=== PATIENT | male | born 1990 | race African-American/Black ===

== ENCOUNTER 2020-06-05 20:46 | Emergency (ER) | payer OTHER, SELFPAY ==
[2020-06-05 20:49] VITALS: BP 147/84; PULSE 78; RESP 20; TEMP 36.3; O2SAT 100
--- NOTE | 2020-06-05 20:54 | ED.DENTAL ---
HPI - Dental/Oral General Chief complaint: Dental/Oral Stated complaint: Left sided dental pain Time Seen by Provider: 06/05/20 20:54 Source: patient Mode of arrival: ambulatory Limitations: no limitations History of Present Illness HPI Narrative: Patient is a 30-year-old male who presents for evaluation of left-sided tooth ache. Patient reports a 2-day history of worsening tooth ache pain in the posterior aspect of his upper mouth. Left side of his face feels somewhat sore. He denies ear pain. No difficulty opening his mouth or difficulty with swallowing. No shortness of breath. Patient has history of dental infection several months ago from an infected wisdom tooth, states this feels similar. No recent dental trauma. Related Data Allergies Allergy/AdvReac Type Severity Reaction Status Date / Time No Known Allergies Allergy Verified 06/05/20 20:52 Review of Systems Review of Systems: Narrative: CONSTITUTIONAL: Denies fever CARDIOVASCULAR: Denies chest pain RESPIRATORY: Denies cough or dyspnea. GASTROINTESTINAL: Denies abdominal pain SKIN: Denies rash MUSCULOSKELETAL: Denies back pain NEUROLOGIC: Denies headache [facility] Past Medical History Medical History (Updated 06/05/20 @ 21:08 by Karen Gunn MD) Hypertension Surgical History Surgical History (Updated 06/05/20 @ 21:08 by Karen Gunn MD) No pertinent past surgical history Exam Narrative: Exam Narrative: GENERAL: Awake, alert, conversant HEAD: Normocephalic, atraumatic. No facial edema or erythema. EYES: PERRLA and EOMI. ENT: Nares clear, no rhinorrhea or epistaxis. Mucous membranes moist. No trismus. Mild erythema of the gingiva, third molar, tooth 16. No abscess. Uvula is midline. NECK: Supple. No lymphadenopathy. CHEST: No respiratory distress, breathing even and non labored HEART: Regular rate, sinus rhythm ABDOMEN:Non distended, non tender EXTREMITIES: Normal range of motion. No edema. SKIN: Warm, dry, no rash. NEURO:No focal deficits. Alert and oriented x3 Course Vital Signs Vital signs: Vital Signs Temperature 36.3 C L 06/05/20 20:49 Pulse Rate 78 06/05/20 20:49 Respiratory Rate 20 06/05/20 20:49 Blood Pressure 147/84 H 06/05/20 20:49 Pulse Oximetry 100 06/05/20 20:49 Temperature 36.3 C L 06/05/20 20:49 Pulse Rate 78 06/05/20 20:49 Respiratory Rate 20 06/05/20 20:49 Blood Pressure 147/84 H 06/05/20 20:49 Pulse Oximetry 100 06/05/20 20:49 MDM - Dental/Oral MDM Narrative Medical decision making narrative: Patient's pain is consistent with dental caries. At the time of assessment there are no signs of systemic illness, no focal signs of space-occupying abscess or lesions, no signs of Nelson angina or other concerning retropharyngeal infection. The patient is controlling hizs secretions well without signs of airway compromise. Patient is thought reasonable for outpatient follow-up with dental evaluation. Patient given oral antibiotics and medication for analgesia. Differential Diagnosis Differential diagnosis: Likely dental caries, toothache, dental abscess, fracture of tooth and aphthous ulcer Discharge Plan Discharge Clinical Impression: Toothache Patient Disposition: Home, Self-Care Condition: Stable Instructions: Toothache (ED) Additional Instructions: Please contact your dentist for follow up from this visit. If you experience worsening pain, vomiting that does not stop, bleeding complications, chest pain, shortness of breath, inability to tolerate your medications please return for reassessment. Take any prescribed medications as directed and do not miss or skip any doses of antibiotics if you have been prescribed them to take. Stay well-hydrated For fever and pain, you may take Tylenol 500 mg - 1000 mg every 8 hours, and Ibuprofen 400 mg every 6-8 hours as needed for pain. These medications can safely be taken together as long as you do not have a known allergy to them
== END 2020-06-05 21:17 | disposition home or self-care (01) ==
LOC: ANHED 21:10
PROVIDERS: Emergency Provider Emergency Medicine; PCP Internal Medicine
DX: K08.89 Other specified disorders of teeth and supporting structures (principal); I10 Essential (primary) hypertension
CPT/HCPCS: 99283

== ENCOUNTER 2021-05-18 23:31 | Emergency (ER) | payer OTHER, SELFPAY ==
[2021-05-18 23:44] VITALS: BP 152/103; PULSE 72; RESP 17; TEMP 36.3; O2SAT 99
[2021-05-19 01:45] VITALS: BP 159/103; PULSE 77; TEMP 36.6; O2SAT 98
--- NOTE | 2021-05-19 03:56 | PC.NURSE ---
Pt. states I will call my doctor tomorrow. Pt, amb out of ed w/ steady gait. NAD
== END 2021-05-19 03:57 | disposition left against medical advice (07) ==
PROVIDERS: Emergency Provider Emergency Medicine; PCP Internal Medicine
DX: J02.9 Acute pharyngitis, unspecified (principal)
CPT/HCPCS: 87081; 87880; 99199

== ENCOUNTER 2021-09-28 22:03 | Observation (INO) | payer OTHER, SELFPAY ==
[2021-09-28] VITALS (9 sets, daily range): BP systolic 126–137; BP diastolic 75–92; PULSE 68; RESP 19; TEMP 36.9; O2SAT 96–100
--- NOTE | 2021-09-28 22:18 | ECG_ITS ---
Measurements Intervals [place] Rate: 72 P: 17 [place]: 211 QRS: 69 QRSD: 84 T: 35 QT: 355 QTc: 391 Interpretive Statements SINUS RHYTHM WITH FIRST DEGREE AV BLOCK ABNORMAL ECG Electronically Signed On 09-29-2021 6:18:31 [employer] by Felix Cabello D.O.
--- NOTE | 2021-09-28 23:13 | ED.NAVMDI ---
HPI - Nausea/Vomiting/Diarrhea General Chief complaint: Nausea/Vomiting/Diarrhea Stated complaint: N/V, chest pain Time Seen by Provider: 09/28/21 23:12 Source: patient Mode of arrival: ambulatory Limitations: no limitations History of Present Illness HPI Narrative: Patient is a 31-year-old male complaining of nausea, vomiting, diarrhea accompanied by burning sensation in his epigastric substernal area after eating tonight. Patient describes his vomitus is nonbilious nonbloody. Patient describes diarrhea as loose watery. Patient denies any shortness of breath, diaphoresis, fever or chills. Related Data Home Medications Medication Instructions Recorded Confirmed lisinopril 2.5 mg PO DAILY 09/28/21 09/28/21 metoprolol succinate 25 mg PO DAILY 09/28/21 09/28/21 Allergies Allergy/AdvReac Type Severity Reaction Status Date / Time No Known Allergies Allergy Verified 06/05/20 20:52 Review of Systems Review of Systems: All systems reviewed & are unremarkable except as noted in HPI and below Constitutional: Constitutional: Denies body ache(s), Denies chills, Denies excessive sweating, Denies fatigue, Denies fever(s), Denies headache(s), Denies lethargy, Denies malaise, Denies weakness and Denies weight loss Eyes: Eyes: Denies blurry vision, Denies change in vision and Denies loss of vision ENT: Denies dizziness, Denies ear discharge, Denies headache(s), Denies lip swelling, Denies epistaxis, Denies nasal congestion, Denies neck pain, Denies throat swelling and Denies tongue swelling Cardiovascular: Cardiovascular: Denies chest pain, Denies chest pain at rest, Denies chest pain with activity, Denies diaphoresis, Denies rapid heart rate, Denies edema, Denies irregular heart rhythm, Denies lightheadedness, Denies palpitations, Denies dyspnea and Denies dyspnea on exertion Respiratory: Respiratory: Denies chest congestion, Denies cough, Denies hemoptysis, Denies dyspnea and Denies dyspnea on exertion Gastrointestinal: Gastrointestinal: Denies melena, Denies hematochezia and Denies hematemesis Musculoskeletal: Musculoskeletal: Denies abnormal gait, Denies deformity, Denies joint swelling, Denies limited range of motion, Denies neck pain and Denies numbness Neurologic: Denies Abnormal speech present, Denies abnormal gait, Denies confusion, Denies dizziness, Denies headache(s), Denies focal weakness, Denies loss of vision, Denies numbness, Denies Other visual disturbances, Denies Sensory deficit (Neuro) and Denies weakness Psychiatric: Psychiatric: Denies confusion, Denies depression, Denies auditory hallucinations, Denies homicidal ideation and Denies suicidal ideation Endocrine: Endocrine: Denies cold intolerance, Denies excessive sweating, Denies fatigue, Denies heat intolerance and Denies palpitations Hematologic/Lymphatic: Hematologic/Lymphatic: Denies easy bleeding and Denies easy bruising Allergic/Immunologic: Allergic/Immunologic: Denies lip swelling, Denies throat swelling and Denies tongue swelling PMFSH Past Medical History Medical History (Updated 09/29/21 @ 03:12 by Martin Santos MD) Hypertension Surgical History Surgical History (Updated 06/05/20 @ 21:08 by Karen Gunn MD) No pertinent past surgical history Comments Past medical history: Hypertension Family history: Hypertension Social history: Non-smoker no EtOH or drug use Exam Const: General: cooperative, healthy appearing, comfortable, no acute distress, well developed, alert and awake; No confusion Orientation/consciousness: oriented to person, oriented to place, oriented to time, patient oriented x3 and No confusion Limitations: no limitations HENMT: Head: normal to inspection, normocephalic and atraumatic Ears: hearing grossly normal bilaterally, TM normal on the right and TM normal on the left General nose exam: Normal external nose present, Normal nares present and No nasal discharge present Face and sinus: normal facial exam Abbie
[2021-09-29] VITALS (20 sets, daily range): BP systolic 123–145; BP diastolic 75–107; PULSE 66–79; RESP 13–25; TEMP 36.3–36.4; O2SAT 97–100
[2021-09-29] MEDS: SODIUM CHLORIDE 0.9% IV 1,000 ML 999 ML IV CONT (00:45)
[2021-09-29] MEDS: ONDANSETRON INJ 4 MG/2 ML VIAL IV PUSH ×3 (00:46→10:46)
[2021-09-29 02:31] LABS: Basophils Percent Auto 0.3 % (0.2-1.2); Eosinophils Percent Auto 0.5 % (0-4.4); Hematocrit 42.3 % (42.0-52.0); Hemoglobin 14.6 g/dL (14.0-18.0); Immature Granulocyte Absolute 0.01 K/mm3 (0.00-0.031); Immature Granulocyte Percent A 0.3 % (0-0.5); Lymphocytes Percent Auto 23.6 % (18.3-44.2); Mean Corpuscular HGB Conc 34.5 g/dl (32-36); Mean Corpuscular Hemoglobin 30.2 pg (26-34); Mean Corpuscular Volume 87.4 fl (80-100); Mean Platelet Volume 9.4 fl (7.4-10.4); Monocytes Absolute Auto 0.3 K/mm3 (0.1-0.6); Monocytes Percent Auto 8.9 % (2.6-8.5); Neutrophils Absolute Auto 2.5 K/mm3 (1.3-6.7); Neutrophils Percent Auto 66.4 % (45.5-73.1); Platelet Count Result 204 k/mm3 (150-375); Red Blood Count 4.84 M/mm3 (4.6-6.20); Red Cell Distribution Width 12.9 % (11.5-14.5); White Blood Count 3.8 K/mm3 (4.5-10.0)
[2021-09-29 02:40] LABS: Add Urine Microscopic? YES; Appearance Urine Clear (Clear); Bilirubin Urine Negative (Negative); Blood Urine Negative (Negative); Color Urine Yellow (Yellow); Glucose Urine UA Negative (Negative); Ketones Urine Negative (Negative); Leukocyte Esterase Ur Negative LEU/UL (Negative); Mucus Urine Heavy /lpf; Nitrate Urine Negative (Negative); Protein Urine Negative (Negative); RBC Urine 0-2 /hpf (0-2); Squamous Epithelial Cell Urine Rare /hpf (Few); WBC Urine 0-3 /hpf
[2021-09-29 02:41] LABS: Specific Grav Ur 1.033 (1.001-1.035)
[2021-09-29 02:51] LABS: Alanine Aminotransferase 18 U/L (4-50); Albumin Level 2.1 g/dL (3.5-5.1); Alkaline Phosphatase 39 U/L (38-126); Anion Gap 5 mmol/L (8-16); Aspartate Amino Transferase 16 U/L (17-59); Bilirubin,Total 0.6 mg/dL (0.2-1.3); Blood Urea Nitrogen 6 mg/dL (9-20); Calcium 4.7 mg/dL (8.4-10.2); Carbon Dioxide 16 mmol/L (22-30); Chloride 119 mmol/L (98-107); Estimated Glomerular Filt Rate > 60; Glucose 55 mg/dL (65-110); Lipase 56 U/L (23-300); Potassium 2.1 mmol/L (3.4-5.0); Sodium 140 mmol/L (137-145)
[2021-09-29] MEDS: LACTATED RINGERS 1,000 ML 125 ML IV CONT (04:53)
[2021-09-29] MEDS: LOPERAMIDE HCL 2 MG CAPSULE 4 MG PO (04:57)
[2021-09-29 05:10] LABS: Alanine Aminotransferase 30 U/L (4-50); Albumin Level 3.9 g/dL (3.5-5.1); Alkaline Phosphatase 72 U/L (38-126); Anion Gap 9 mmol/L (8-16); Aspartate Amino Transferase 27 U/L (17-59); Bilirubin,Total 1.2 mg/dL (0.2-1.3); Blood Urea Nitrogen 9 mg/dL (9-20); Calcium 8.3 mg/dL (8.4-10.2); Carbon Dioxide 24 mmol/L (22-30); Chloride 106 mmol/L (98-107); Estimated CRCL calculation 126 ml/min; Estimated Glomerular Filt Rate > 60; Glucose 100 mg/dL (65-110); Potassium 3.3 mmol/L (3.4-5.0); Sodium 139 mmol/L (137-145)
--- NOTE | 2021-09-29 06:59 | ADMGEN ---
This patient, Ant Hamilton, was admitted to 3 [facility] Surg Room 316-01. Patient/family oriented to hospital policies and general routines including ID bracelet, bed and alarms, visiting hours, pain management, procedures, bathroom and other care routines, personal items, smoking policy, room service/diet, and visiting hours. Information on how to activate the Rapid Response Team has been discussed. Patient/Family are encouraged to report perceived risks to care and to ask questions if they do not understand what they are told or what they should do.
[2021-09-29] MEDS: PANTOPRAZOLE SODIUM IV 40 MG VIAL IV PUSH (10:42)
[2021-09-29] MEDS: ENOXAPARIN 40 MG/0.4 ML SYRINGE SUB-Q (10:43)
[2021-09-29] MEDS: METOPROLOL SUCCINATE EXT REL 25 MG TABCR PO (11:56)
[2021-09-29] MEDS: lisinopriL 2.5 MG TABLET PO (11:57)
--- NOTE | 2021-09-29 14:13 | PM.IMHP ---
H&P: HPI History of Present Illness Date/Time: 09/29/21 14:13 Pt is a 31 yo male w/ hx of HTN, [place] w/ cardiac cath (negative), pericarditis, and morbid obesity, presented to the ED for evaluation of N/V/D and was subsequently admitted for hypokalemia and hypoglycemia. Pt states yesterday morning around 0300 he woke up from sleep with nausea, vomiting, and diarrhea. He has had greater than 10 episodes of emesis since that time. He also reports greater than 30 episodes of watery diarrhea. He has been unable to keep anything down. He admits to epigastric pain that started after the vomiting but states he only has pain when wretching. No abd pain currently. No hematochezia or hematemesis. No recent travel, abx use, ill contacts, or abnormal foods. He was evaluated in the ED and found to have a potassium of 2.1 and glucose of 55. He was treated w/ K rider and Amp of D50 and admitted for further observation and management. Chief Complaint: nausea/vomiting Review of Systems Review of Systems: General: Denies fevers, +chills, +fatigue Eyes: Denies vision changes or eye pain ENT: Denies nasal congestion or sore throat Respiratory: Denies cough or shortness of breath Cardiovascular: Denies chest pain, palpitations, or lower extremity edema Gastrointestinal: + abdominal pain, + vomiting, + diarrhea Genitourinary: Denies dysuria or urinary frequency Musculoskeletal: Denies back pain or muscle aches Neurological: Denies headache, paraesthesias, or motor weakness Integumentary: Denies rash or other skin lesions Psychiatric: Denies SI/HI [facility] Past Medical History Medical History (Updated 09/29/21 @ 14:28 by Akua Arriaga PA-C) Hypertension Pericarditis Surgical History Surgical History (Updated 09/29/21 @ 14:24 by Akua Arriaga PA-C) History of cardiac catheterization at age 23 No pertinent past surgical history Family History Family History (Updated 09/29/21 @ 14:25 by Akua Arriaga PA-C) Grandparent Heart disease Mother Cerebrovascular accident Social History Social History (Updated 09/29/21 @ 14:25 by Akua Arriaga PA-C) Smoking packs per day: 1 Smoking cigarettes per day: 20.0 Smoking status: Former smoker Tobacco type: cigarettes Alcohol intake: never Substance use: current Substance use type: marijuana Living arrangements: with family Sexual Orientation (if Verbalized by the Patient): Straight or Heterosexual Spiritual care concerns: No Meds Home Medications and Allergies Home Medications Medication Instructions Recorded Confirmed Type lisinopril 2.5 mg PO DAILY 09/28/21 09/28/21 History metoprolol succinate 25 mg PO DAILY 09/28/21 09/28/21 History Allergies Allergy/AdvReac Type Severity Reaction Status Date / Time No Known Allergies Allergy Verified 06/05/20 20:52 Vital Signs Vital Signs - 24 hr 09/28/21 22:15 09/28/21 22:32 09/28/21 22:45 Temperature Pulse Rate Respiratory Rate Blood Pressure Pulse Oximetry 99 100 96 09/28/21 23:00 09/28/21 23:15 09/28/21 23:16 Temperature 98.4 F Pulse Rate 68 Respiratory Rate 19 Blood Pressure 130/75 126/92 H Pulse Oximetry 97 97 96 09/28/21 23:30 09/28/21 23:31 09/28/21 23:45 Temperature Pulse Rate Respiratory Rate Blood Pressure 137/79 Pulse Oximetry 100 98 97 09/29/21 02:52 09/29/21 02:55 09/29/21 03:00 Temperature Pulse Rate 75 70 Respiratory Rate 23 H 25 H Blood Pressure 133/107 H Pulse Oximetry 97 97 98 09/29/21 03:01 09/29/21 03:15 09/29/21 03:30 Temperature Pulse Rate 78 78 69 Respiratory Rate 24 H 22 H 20 Blood Pressure 145/90 H Pulse Oximetry 99 99 99 09/29/21 03:33 09/29/21 03:45 09/29/21 04:00 Temperature Pulse Rate 68 79 71 Respiratory Rate 21 H 13 19 Blood Pressure 140/91 H Pulse Oximetry 09/29/21 04:01 09/29/21 04:15 09/29/21 04:30 Temperature Pulse Rate 75 73 74 Respiratory Rate 22
[2021-09-29] MEDS: LACTATED RINGERS 1,000 ML 50 ML IV CONT (21:42)
[2021-09-29 22:29] LABS: Basophils Percent Auto 0.5 % (0.2-1.2); Eosinophils Absolute Auto 0.1 K/mm3 (0-0.3); Eosinophils Percent Auto 2.6 % (0-4.4); Hemoglobin 15.6 g/dL (14.0-18.0); Immature Granulocyte Absolute 0.08 K/mm3 (0.00-0.031); Immature Granulocyte Percent A 2.1 % (0-0.5); Lymphocytes Absolute Auto 1.64 K/mm3 (0.9-3.2); Lymphocytes Percent Auto 42.6 % (18.3-44.2); Mean Corpuscular HGB Conc 36.3 g/dl (32-36); Mean Corpuscular Volume 85.3 fl (80-100); Mean Platelet Volume 9.7 fl (7.4-10.4); Monocytes Absolute Auto 0.5 K/mm3 (0.1-0.6); Monocytes Percent Auto 13.2 % (2.6-8.5); Neutrophils Absolute Auto 1.5 K/mm3 (1.3-6.7); Platelet Count Result 195 k/mm3 (150-375); Red Blood Count 5.04 M/mm3 (4.6-6.20); Red Cell Distribution Width 12.7 % (11.5-14.5); White Blood Count 3.9 K/mm3 (4.5-10.0)
[2021-09-30 06:00] VITALS: BP 105/76; PULSE 65; RESP 18; TEMP 37.1; O2SAT 100
[2021-09-30 06:49] LABS: Anion Gap 9 mmol/L (8-16); Blood Urea Nitrogen 7 mg/dL (9-20); Calcium 8.5 mg/dL (8.4-10.2); Carbon Dioxide 24 mmol/L (22-30); Chloride 102 mmol/L (98-107); Estimated CRCL calculation 126 ml/min; Estimated Glomerular Filt Rate > 60; Glucose 84 mg/dL (65-110); Potassium 3.3 mmol/L (3.4-5.0); Sodium 135 mmol/L (137-145)
[2021-09-30] MEDS: POTASSIUM CHLORIDE 20 MEQ TABLET 40 MEQ PO (10:51)
[2021-09-30] MEDS: PANTOPRAZOLE SODIUM IV 40 MG VIAL IV PUSH (10:51)
[2021-09-30] MEDS: lisinopriL 2.5 MG TABLET PO (10:51)
[2021-09-30] MEDS: METOPROLOL SUCCINATE EXT REL 25 MG TABCR PO (10:53)
[2021-09-30] MEDS: ENOXAPARIN 40 MG/0.4 ML SYRINGE SUB-Q (10:57)
[2021-09-30 11:03] VITALS: O2SAT 99
[2021-09-30 12:35] LABS: Hematocrit 42.9 % (42.0-52.0); Hemoglobin 14.8 g/dL (14.0-18.0); Mean Corpuscular HGB Conc 34.5 g/dl (32-36); Mean Platelet Volume 9.9 fl (7.4-10.4); Platelet Count Result 204 k/mm3 (150-375); Red Blood Count 4.93 M/mm3 (4.6-6.20); Red Cell Distribution Width 12.7 % (11.5-14.5); White Blood Count 3.6 K/mm3 (4.5-10.0)
[2021-09-30 14:00] VITALS: BP 149/97; PULSE 70; RESP 16; TEMP 35.9; O2SAT 100
--- NOTE | 2021-09-30 14:03 | PM.DS ---
DS: Admitting Diagnosis Discharge Date 09/30/21 Admitting Diagnosis Hypokalemia, hypoglycemia DS: Discharge Diagnosis Discharge Diagnosis (1) Gastroenteritis: Code(s): K52.9 - Noninfective gastroenteritis and colitis, unspecified Status: Acute Assessment and Plan: -acute onset N/V/D consistent with viral gastroenteritis -no abdominal pain or hematochezia to suggest infectious colitis -given zofran in ED, no vomiting since arrival to hospital -continued IVF while still decreased PO intake -started with clear liquids and has advanced to bland diet, tolerating without difficulty -no complaints today, feels great, ready for discharge -no N/V/D, abd pain -stable for discharge, will provide zofran prescription -Return precautions provided (2) Acute hypokalemia: Code(s): E87.6 - Hypokalemia Status: Acute Assessment and Plan: -potassium 2.1 on arrival, likely due to volume loss secondary to above -replaced w/ IV and PO potassium and monitored -normal on discharge 3.6 (3) Hypoglycemia: Code(s): E16.2 - Hypoglycemia, unspecified Status: Acute Assessment and Plan: -glucose 55 on arrival, likely due to volume loss secondary to above -given amp of D50 and improved to 100 -no longer vomiting, tolerating PO with normal diet -normal on discharge 97 (4) Hypertension: Code(s): I10 - Essential (primary) hypertension Status: Acute Assessment and Plan: -continued home meds DS: Summary Hospital Course Reason for hospitalization: 31 yo male w/ hx of HTN, [place] w/ cardiac cath (negative), pericarditis, and morbid obesity, presented to the ED for evaluation of N/V/D and was subsequently admitted for hypokalemia and hypoglycemia. Please see HPI for further details. Hospital Course: Please see above for details of hospital course. Status at Discharge Cognitive/behavioral status at discharge: stable Functional status at discharge: independent ambulation Overall status at discharge: patient is progressing back to baseline Time Spent with Patient Time attestation: Total time spent providing and/or coordinating discharge services: 32 Time spent: Greater than 30 minutes Exam Narrative: General: No acute distress, non toxic appearing, obese Eyes: PERRL, no scleral icterus HEENT: NCAT, external ears normal, MMM Respiratory: No respiratory distress, Lungs CTA bilaterally, no wheezing Cardiovascular: RRR, no murmur Abdominal: Soft, nontender, non distended, no rebound or guarding Musculoskeletal: Moves all 4 extremities, no edema Neurological: A/Ox3, speech normal, no facial asymmetry Skin: Warm, dry, no rashes Psychiatric: Normal affect, normal mood DS: Data Data Completed and Pending Labs on day of discharge: Labs from last 24 hours 09/30/21 09/30/21 09/30/21 13:45 06:20 06:20 WBC 3.6 L RBC 4.93 Hgb 14.8 Hct 42.9 MCV 87.0 MCH 30.0 MCHC 34.5 RDW 12.7 Plt Count 204 MPV 9.9 Immature Gran % (Auto) Neut % (Auto) Lymph % (Auto) Glynn % (Auto) Eos % (Auto) Baso % (Auto) Lymph # (Auto) Glynn # (Auto) Eos # (Auto) Baso # (Auto) Abs Immat Gran (auto) Absolute Neuts (auto) Absolute Nucleated RBC Nucleated RBC % Sodium Pending 135 L Potassium Pending 3.3 L Chloride Pending 102 Carbon Dioxide Pending 24 Anion Gap Pending 9 BUN Pending 7 L Creatinine Pending 1.00 Estim Creat Clear Calc Pending 126 Estimated GFR Pending > 60 Glucose Pending 84 Calcium Pending 8.5 09/29/21 22:23 WBC 3.9 L RBC 5.04 Hgb 15.6 Hct 43.0 MCV 85.3 MCH 31.0 MCHC 36.3 H RDW 12.7 Plt Count 195 MPV 9.7 Immature Gran % (Auto) 2.1 H Neut % (Auto) 39.0 L Lymph % (Auto) 42.6 Glynn % (Auto) 13.2 H Eos % (Auto) 2.6 Baso % (Auto) 0.5 Lymph # (Auto) 1.64 Glynn # (Auto) 0.5 Eos # (Auto) 0.1 Baso # (Auto) 0.0 Abs Im
[2021-09-30 14:12] LABS: Anion Gap 10 mmol/L (8-16); Blood Urea Nitrogen 7 mg/dL (9-20); Calcium 9.3 mg/dL (8.4-10.2); Carbon Dioxide 24 mmol/L (22-30); Chloride 105 mmol/L (98-107); Estimated CRCL calculation 126 ml/min; Estimated Glomerular Filt Rate > 60; Glucose 97 mg/dL (65-110); Potassium 3.6 mmol/L (3.4-5.0); Sodium 139 mmol/L (137-145)
== END 2021-09-30 14:30 | disposition home or self-care (01) ==
LOC: ANHED 09-29 03:12 → ANH3MEDSUR 09-29 05:44
PROVIDERS: Emergency Medicine; Physician Assistant; Admitting Provider Internal Medicine; Emergency Provider Emergency Medicine; PCP Family Medicine; Visit Provider Internal Medicine
DX: K52.9 Noninfective gastroenteritis and colitis, unspecified (principal); E87.6 Hypokalemia; E16.2 Hypoglycemia, unspecified; I10 Essential (primary) hypertension; E66.01 Morbid (severe) obesity due to excess calories; Z68.41 Body mass index [BMI] 40.0-44.9, adult; Z87.891 Personal history of nicotine dependence
CPT/HCPCS: 36415; 80048; 80053; 81001; 83690; 85025; 85027; 93005; 96361; 96365; 96366; 96372; 96374; 96375; 96376; 99285; A9270; C9113; G0378; G0379; J1650; J2405; J3480; J7030; J7060; J7120

== ENCOUNTER 2023-03-20 16:30 | Emergency (ER) | payer OTHER, SELFPAY ==
--- NOTE | ~2023-03-20 | CT_ITS ---
EXAMINATION: CT abdomen pelvis w con DATE: 03/20/2023 21:39 INDICATION: laura hematuria TECHNIQUE: Computed tomography (CT) of the abdomen and pelvis was performed with 100 mL Omnipaque-350 intravenous contrast. Automated exposure control and iterative reconstruction technique were employe d. The dose-length product was 1490.50 mGy-cm. COMPARISON: None. FINDINGS: Lower thorax: Unremarkable Liver: Normal. Biliary/Gallbladder: Gallbladder is normal. No bile duct dilation. Pancreas: No mass or duct dilation. Spleen: Normal. Adrenals:No mass. Kidneys: Simple left lower pole cyst. No suspicious mass, stone, or hydronephrosis. GI tract: Moderate distal esophageal and gastric wall edema No small or large bowel dilation. Normal appendix. Mesentery/Peritoneum: No ascites, mass, or free air. Retroperitoneum: No mass. Pelvis: Pelvic organs are within normal limits. Teardrop shaped 4.0 x 8.0 cm smooth walled fluid dens ity structure in the right retroperitoneal space deep to the iliac vessels and medial to the psoas mu scle. Likely benign cyst and of doubtful clinical significance. Soft Tissues: Soft tissues and body wall unremarkable. Bones: No acute osseous finding. IMPRESSION: Moderate esophagitis/gastritis. Otherwise, acute abdominal pelvic process detected Reviewed, dictated and finalized at location K. IMPRESSION: Moderate esophagitis/gastritis. Otherwise, acute abdominal pelvic process detec angie
[2023-03-20 16:50] VITALS: BP 156/98; PULSE 71; RESP 16; TEMP 36.5; O2SAT 98
[2023-03-20 17:37] LABS: Appearance Urine Slightly Cloudy (Clear); Bilirubin Urine Negative (Negative); Blood Urine 3+ (Negative); Color Urine Yellow (Yellow); Glucose Urine UA Negative (Negative); Ketones Urine Negative (Negative); Leukocyte Esterase Ur Negative LEU/UL (Negative); Nitrate Urine Negative (Negative); Protein Urine Negative (Negative); Specific Grav Ur >= 1.030 (1.001-1.035); Urobilinogen Urine 0.2 mg/dL (<2.0); pH Urine 5.5 (5.0-9.0)
[2023-03-20 17:44] LABS: RBC Urine >100 /hpf (0-2)
[2023-03-20 17:45] LABS: Squamous Epithelial Cell Urine None seen /hpf (Few); WBC Urine None seen /hpf (0-3)
[2023-03-20 17:46] LABS: Bacteria Urine None Seen /hpf
[2023-03-20 17:49] LABS: Add Urine Microscopic? YES
--- NOTE | 2023-03-20 19:26 | ED.GENADULT ---
HPI - General Adult General Chief complaint: Urogenital-Male Stated complaint: Urinating blood Time Seen by Provider: 03/20/23 18:57 History of Present Illness HPI narrative: 32-year-old male here for evaluation of hematuria. Patient states he went to use the bathroom in the small to moderate amount of blood came out in addition to urine. Patient states since then he has had normal voids but the initial episode worries him. He denies any back pain, nausea, vomiting, diarrhea, constipation. He has had no blood in his stools. Related Data Home Medications Medication Instructions Recorded Confirmed lisinopril 2.5 mg tablet 2.5 mg PO DAILY 09/28/21 09/28/21 metoprolol succinate 25 mg 25 mg PO DAILY 09/28/21 09/28/21 tablet,extended release 24 hr Allergies Allergy/AdvReac Type Severity Reaction Status Date / Time No Known Allergies Allergy Verified 03/20/23 16:52 Review of Systems Review of Systems: Gen.: Denies fevers or chills Eyes: Denies eye pain or visual change ENT: Denies congestion Respiratory: Denies shortness of breath or cough CV: Denies chest pain or palpitations GI: Denies abdominal pain nausea, emesis or diarrhea : Reports blood in urine Musculoskeletal: Denies back pain or muscle pain Neuro: Denies numbness, tingling, weakness or focal weakness Skin: Denies rash Except as documented, all other systems reviewed and negative [facility] Past Medical History Medical History Hypertension Pericarditis Surgical History Surgical History History of cardiac catheterization at age 23 No pertinent past surgical history Family History Family History (Updated 09/29/21 @ 14:25 by Akua Arriaga PA-C) Grandparent Heart disease Mother Cerebrovascular accident Social History Social History (Updated 09/29/21 @ 14:25 by Akua Arriaga PA-C) Smoking packs per day: 1 Smoking cigarettes per day: 20.0 Smoking status: Former smoker Tobacco type: cigarettes Alcohol intake: never Substance use: current Substance use type: marijuana Living arrangements: with family Sexual Orientation (if Verbalized by the Patient): Straight or Heterosexual Spiritual care concerns: No Exam Narrative: APPEARANCE: Well appearing, no pain in distress, well-nourished. Head: Normocephalic and atraumatic. EYES: PERRLA/EOMI, conjunctivae clear NOSE: No nasal drainage EARS: External ear normal in appearance THROAT: Oropharynx is clear. Mucous membranes are moist. NECK: Supple. No adenopathy, no masses. RESPIRATORY: Airway patent, respirations nonlabored. Clear to auscultation bilaterally, no rales, rhonchi, wheezing. CARDIOVASCULAR: Regular rate and rhythm without murmurs, rubs, or gallops. ABDOMINAL: Normoactive bowel sounds. Soft, nontender, nondistended. No rebound tenderness or guarding. MUSCULOSKELETAL: Extremities are warm and well-perfused. Moves all extremities well. No edema. NEURO: Normal speech. No focal neurologic deficits. SKIN: Skin is warm and dry. No rashes. PSYCHIATRIC: Normal affect/mood.. Course Vital Signs Vital signs: Vital Signs Temperature 97.7 F 03/20/23 16:50 Pulse Rate 71 03/20/23 16:50 Respiratory Rate 16 03/20/23 16:50 Blood Pressure 156/98 H 03/20/23 16:50 Pulse Oximetry 98 03/20/23 16:50 Temperature 98 F 03/20/23 22:17 Pulse Rate 77 03/20/23 22:17 Respiratory Rate 16 03/20/23 22:17 Blood Pressure 147/100 H 03/20/23 22:17 Pulse Oximetry 100 03/20/23 22:17 Medical Decision Making [facility] Narrative Medical decision making narrative: 32-year-old male here for evaluation of an episode of blood in his urine earlier today that is since resolved. He is nontoxic in appearance and denies any other complaints. Vital signs are normal. Hemoglobin is 15.8. Urine with red blood cells and 3+ blood
[2023-03-20 20:03] LABS: Basophils Absolute Auto 0.1 K/mm3 (0.0-0.1); Basophils Percent Auto 0.7 % (0.2-1.2); Eosinophils Absolute Auto 0.3 K/mm3 (0-0.3); Hematocrit 45.7 % (42.0-52.0); Hemoglobin 15.8 g/dL (14.0-18.0); Immature Granulocyte Absolute 0.02 K/mm3 (0.00-0.031); Immature Granulocyte Percent A 0.3 % (0-0.5); Lymphocytes Absolute Auto 2.36 K/mm3 (0.9-3.2); Lymphocytes Percent Auto 35.4 % (18.3-44.2); Mean Corpuscular HGB Conc 34.6 g/dl (32-36); Mean Corpuscular Hemoglobin 30.1 pg (26-34); Mean Platelet Volume 9.7 fl (7.4-10.4); Monocytes Absolute Auto 0.4 K/mm3 (0.1-0.6); Monocytes Percent Auto 6.6 % (2.6-8.5); Neutrophils Absolute Auto 3.5 K/mm3 (1.3-6.7); Platelet Count Result 275 k/mm3 (150-375); Red Blood Count 5.25 M/mm3 (4.6-6.20); Red Cell Distribution Width 12.9 % (11.5-14.5); White Blood Count 6.7 K/mm3 (4.5-10.0)
[2023-03-20 20:27] LABS: Alanine Aminotransferase 35 U/L (6-50); Albumin Level 4.6 g/dL (3.5-5.1); Alkaline Phosphatase 69 U/L (38-126); Anion Gap 5 mmol/L (8-16); Aspartate Amino Transferase 31 U/L (17-59); Bilirubin,Total 1.1 mg/dL (0.2-1.3); Blood Urea Nitrogen 8 mg/dL (9-20); Calcium 9.6 mg/dL (8.4-10.2); Carbon Dioxide 29 mmol/L (22-30); Chloride 104 mmol/L (98-107); Estimated CRCL calculation 136 ml/min; Estimated Glomerular Filt Rate > 60; Glucose 78 mg/dL (65-110); Potassium 3.8 mmol/L (3.4-5.0); Sodium 138 mmol/L (137-145)
[2023-03-20 22:17] VITALS: BP 147/100; PULSE 77; RESP 16; TEMP 36.6; O2SAT 100
== END 2023-03-20 22:18 | disposition home or self-care (01) ==
PROVIDERS: Emergency Medicine; Nurse Practitioner Family; Emergency Provider Physician Assistant; PCP Family Medicine
DX: R31.9 Hematuria, unspecified (principal); I10 Essential (primary) hypertension
CPT/HCPCS: 36415; 74177; 80053; 81001; 85025; 99284; Q9967

== ENCOUNTER 2023-04-10 13:06 | Emergency (ER) | payer OTHER, SELFPAY ==
--- NOTE | ~2023-04-10 | CT_ITS ---
EXAMINATION: CT abdomen pelvis wo/w con DATE: 04/10/2023 15:48 INDICATION: Painless hematuria TECHNIQUE: Computed tomography (CT) of the abdomen and pelvis was performed without intravenous contr ast. CT of the abdomen and pelvis was then performed with a total of 130 mL Omnipaque-350 intravenous contrast using a double-bolus technique for simultaneous opacification of the renal parenchyma and r enal collecting system. Automated exposure control and iterative reconstruction technique were employ ed. The dose-length product was 3106.57 mGy-cm. COMPARISON: 03/20/2023 FINDINGS: Lung bases are clear. Heart size is normal. No pericardial or pleural effusion. Liver, gallbladder, s pleen, pancreas and bilateral adrenal glands are normal. No significant change in a 7 mm low-attenuat ion left renal cyst. Right kidney is normal. No urolithiasis. Bilateral renal collecting systems and ureters are opacified in their entirety with no evident urothelial irregularities. Bladder is normal. Again seen is a teardrop shaped simple fluid attenuation retroperitoneal cyst including along the me dial side of the right psoas muscle which measures 7.2 x 3.1 x 4.1 cm and without evident nodule with solid soft tissue component. No free intraperitoneal gas or fluid. No pathologically enlarged abdomi nal or pelvic lymphadenopathy. Very small fat-containing umbilical hernia. Bones are unremarkable. IMPRESSION: 1. 7 mm left renal cyst. Otherwise normal kidneys and ureters with no urolithiasis, urothelial irregu larities or other etiology for reported hematuria. Reviewed, dictated and finalized at location A. IMPRESSION: 1. 7 mm left renal cyst. Otherwise normal kidneys and ureters with no urolithia sis, urothelial irregularities or other etiology for reported hematuria.
[2023-04-10 13:08] VITALS: BP 166/98; PULSE 68; RESP 16; TEMP 36.6; O2SAT 100
[2023-04-10 13:52] LABS: Appearance Urine Clear (Clear); Bacteria Urine None Seen /hpf; Bilirubin Urine Negative (Negative); Blood Urine 1+ (Negative); Color Urine Yellow (Yellow); Glucose Urine UA Negative (Negative); Ketones Urine Negative (Negative); Leukocyte Esterase Ur 3+ LEU/UL (Negative); Nitrate Urine Negative (Negative); Non Pathogenic Casts 0-2; Protein Urine Negative (Negative); Specific Grav Ur 1.017 (1.001-1.035); Squamous Epithelial Cell Urine None seen /hpf (Few); Urobilinogen Urine 0.2 mg/dL (<2.0); WBC Urine 51-100 /hpf; pH Urine 5.5 (5.0-9.0)
[2023-04-10 13:56] LABS: Add Urine Microscopic? YES
[2023-04-10 14:24] LABS: Basophils Absolute Auto 0.1 K/mm3 (0.0-0.1); Basophils Percent Auto 1.2 % (0.2-1.2); Eosinophils Absolute Auto 0.3 K/mm3 (0-0.3); Eosinophils Percent Auto 4.7 % (0-4.4); Hematocrit 44.2 % (42.0-52.0); Hemoglobin 15.5 g/dL (14.0-18.0); Immature Granulocyte Absolute 0.01 K/mm3 (0.00-0.031); Immature Granulocyte Percent A 0.2 % (0-0.5); Lymphocytes Absolute Auto 2.04 K/mm3 (0.9-3.2); Lymphocytes Percent Auto 34.6 % (18.3-44.2); Mean Corpuscular HGB Conc 35.1 g/dl (32-36); Mean Corpuscular Hemoglobin 30.6 pg (26-34); Mean Corpuscular Volume 87.4 fl (80-100); Mean Platelet Volume 9.6 fl (7.4-10.4); Monocytes Absolute Auto 0.5 K/mm3 (0.1-0.6); Neutrophils Percent Auto 50.3 % (45.5-73.1); Platelet Count Result 265 k/mm3 (150-375); Red Blood Count 5.06 M/mm3 (4.6-6.20); Red Cell Distribution Width 13.2 % (11.5-14.5); White Blood Count 5.9 K/mm3 (4.5-10.0)
[2023-04-10 14:37] LABS: Alanine Aminotransferase 32 U/L (6-50); Albumin Level 4.3 g/dL (3.5-5.1); Alkaline Phosphatase 72 U/L (38-126); Anion Gap 4 mmol/L (8-16); Aspartate Amino Transferase 29 U/L (17-59); Bilirubin,Total 0.9 mg/dL (0.2-1.3); Blood Urea Nitrogen 14 mg/dL (9-20); Calcium 9.2 mg/dL (8.4-10.2); Carbon Dioxide 27 mmol/L (22-30); Chloride 108 mmol/L (98-107); Estimated CRCL calculation 130 ml/min; Estimated Glomerular Filt Rate > 60; Glucose 91 mg/dL (65-110); Potassium 3.7 mmol/L (3.4-5.0); Sodium 139 mmol/L (137-145)
[2023-04-10 14:56] VITALS: BP 144/87; PULSE 61; RESP 18; O2SAT 100
--- NOTE | 2023-04-10 15:17 | ED.MALEGU ---
HPI - Male Genitourinary General Chief complaint: Urogenital-Male Stated complaint: hematuria Time Seen by Provider: 04/10/23 13:11 Source: patient Mode of arrival: ambulatory Limitations: no limitations History of Present Illness HPI Narrative: Patient is a 32 y/o male who presents to the ED with c/o hematuria. Patient reports he passed a quarter sized blood clot while urinating today. He denied any pain or burning associated with the urination. He reports he had a similar episode a few weeks ago and was seen in the ED at that time. Had a negative work-up. Urine did not look significantly infected at that time but patient was discharged on ciprofloxacin and given urology information for follow-up. He states he did not take the antibiotics exactly as prescribed. He has not followed up with urology yet. He denies any significant abdominal or back pain currently. Denies nausea, vomiting, fevers. Denies concern for STDs. Denies testicular pain or swelling. Related Data Home Medications Medication Instructions Recorded Confirmed lisinopril 2.5 mg tablet 2.5 mg PO DAILY 09/28/21 09/28/21 metoprolol succinate 25 mg 25 mg PO DAILY 09/28/21 09/28/21 tablet,extended release 24 hr Allergies Allergy/AdvReac Type Severity Reaction Status Date / Time No Known Allergies Allergy Verified 04/10/23 13:24 Review of Systems Review of Systems: CONSTITUTIONAL: Denies fever, chills, or sweats. GASTROINTESTINAL: Denies abdominal pain, nausea, vomiting, or diarrhea. GENITOURINARY: See HPI. SKIN: Denies rash or itching. MUSCULOSKELETAL: Denies back pain, joint pain, or myalgia. All systems reviewed & are unremarkable except as noted in HPI and below PMFSH Past Medical History Medical History Hypertension Pericarditis Surgical History Surgical History History of cardiac catheterization at age 23 No pertinent past surgical history Family History Family History (Updated 09/29/21 @ 14:25 by Akua Arriaga PA-C) Grandparent Heart disease Mother Cerebrovascular accident Social History Social History Smoking packs per day: 1 Smoking cigarettes per day: 20.0 Smoking status: Former smoker Tobacco type: cigarettes Alcohol intake: never Substance use: current Substance use type: marijuana Living arrangements: with family Sexual Orientation (if Verbalized by the Patient): Straight or Heterosexual Spiritual care concerns: No Exam Narrative: GENERAL: Well appearing, morbidly obese with BMI of 47.3, non-toxic, in no acute distress. HEAD: Normocephalic, atraumatic. NECK: Supple. No adenopathy, no masses. RESPIRATORY: Airway patent, respirations nonlabored. Clear to auscultation bilaterally, no rales, rhonchi, wheezing. CARDIOVASCULAR: Regular rate and rhythm without murmurs, rubs, or gallops. Radial pulses 2+ and equal bilaterally. ABDOMINAL: Soft, no significant tenderness of the abdomen., nondistended, no hepatosplenomegaly. Normoactive BS. No CVA tenderness to percussion bilaterally. MUSCULOSKELETAL: Moves all extremities. Strength/ROM intact without gross deformities. SKIN: Warm, dry, normal color. No rashes. NEURO: A&O X3. Speech clear. Cranial nerves II-XII grossly intact. Steady gait. No ataxic movements. PSYCHIATRIC: Appropriate mood and affect. Normal interaction. Course Vital Signs Vital signs: Vital Signs Temperature 97.8 F 04/10/23 13:08 Pulse Rate 68 04/10/23 13:08 Respiratory Rate 16 04/10/23 13:08 Blood Pressure 166/98 H 04/10/23 13:08 Pulse Oximetry 100 04/10/23 13:08 Temperature 97.8 F 04/10/23 13:08 Pulse Rate 61 04/10/23 14:56 Respiratory Rate 18 04/10/23 14:56 Blood Pressure 144/87 H 04/10/23 14:56 Pulse Oximetry 100 04/10/23 14:56 MDM - Male
[2023-04-10] MEDS: SODIUM CHLORIDE 0.9% IV 1,000 ML 999 ML IV CONT (15:23)
--- NOTE | 2023-04-10 15:27 | PC.NURSE ---
Pt to CT scan via stretcher at this time.
== END 2023-04-10 16:37 | disposition home or self-care (01) ==
PROVIDERS: Emergency Provider Physician Assistant; PCP Family Medicine
DX: N30.01 Acute cystitis with hematuria (principal); N28.1 Cyst of kidney, acquired; I10 Essential (primary) hypertension; I31.9 Disease of pericardium, unspecified; Z87.891 Personal history of nicotine dependence
CPT/HCPCS: 36415; 74178; 80053; 81001; 85025; 87086; 96361; 96365; 99284; J0696; J7030; Q9967

== ENCOUNTER 2023-07-14 22:09 | Emergency (ER) | payer OTHER, SELFPAY ==
--- NOTE | ~2023-07-14 | XR_ITS ---
EXAMINATION: XR knee RT 3V DATE: 07/14/2023 22:39 INDICATION: Right knee injury and pain. TECHNIQUE: 3 views of right knee were obtained. COMPARISON: None. FINDINGS: Bone alignment is normal. No fracture. There is mild osteoarthritis of patellofemoral xenia rtment. No knee joint effusion. IMPRESSION: 1. Mild right knee osteoarthritis. Reviewed, dictated and finalized at location E.
[2023-07-14 22:14] VITALS: BP 149/107; PULSE 83; RESP 16; TEMP 36.4; O2SAT 100
--- NOTE | 2023-07-15 01:13 | ED.LOWEXIN ---
HPI - Extremity Injury (Lower) General Chief Complaint: Extremity Injury, Lower Stated Complaint: R. knee pain Time Seen by Provider: 07/15/23 01:08 Source: patient Mode of arrival: ambulatory (on crutches) Limitations: no limitations History of Present Illness HPI Narrative: This is a 33 year old male that presents to the ER for right knee pain after an injury this afternoon. Reports he had to stop suddenly and his knee hyperextended. Reports pain in the knee anteriorly. Unable to bear weight due to pain. Denies decreased ROM or numbness. Related Data Home Medications Medication Instructions Recorded Confirmed lisinopril 2.5 mg tablet 2.5 mg PO DAILY 09/28/21 09/28/21 metoprolol succinate 25 mg 25 mg PO DAILY 09/28/21 09/28/21 tablet,extended release 24 hr Allergies Allergy/AdvReac Type Severity Reaction Status Date / Time No Known Allergies Allergy Verified 07/15/23 01:20 Review of Systems Review of Systems: CONSTITUTIONAL: Denies fever MUSCULOSKELETAL: Reports joint pain, and myalgia. NEUROLOGIC: Denies numbness All systems reviewed & are unremarkable except as noted in HPI and below PMFSH Past Medical History Medical History Hypertension Pericarditis Surgical History Surgical History History of cardiac catheterization at age 23 No pertinent past surgical history Family History Family History (Updated 09/29/21 @ 14:25 by Akua Arriaga PA-C) Grandparent Heart disease Mother Cerebrovascular accident Social History Social History Smoking packs per day: 1 Smoking cigarettes per day: 20.0 Smoking status: Former smoker Tobacco type: cigarettes Alcohol intake: never Substance use: current Substance use type: marijuana Living arrangements: with family Sexual Orientation (if Verbalized by the Patient): Straight or Heterosexual Spiritual care concerns: No Exam Narrative: GENERAL: Well-appearing, well-nourished, and in no acute distress. HEAD: Normocephalic, atraumatic. EYES: EOMI. EXTREMITIES: Normal range of motion. No edema or obvious deformity. Normal straight leg raise. Normal DP pulse. Normal sensation SKIN: Warm, dry, no rash. NEURO: No focal deficits. Alert and oriented x3. PSYCH: Normal mood and affect Course Course Emergency Course: Patient was updated on workup and agrees with plan of care Vital Signs Vital signs: Vital Signs Temperature 97.6 F 07/14/23 22:14 Pulse Rate 83 07/14/23 22:14 Respiratory Rate 16 07/14/23 22:14 Blood Pressure 149/107 H 07/14/23 22:14 Pulse Oximetry 100 07/14/23 22:14 Oxygen Delivery Room Air 07/14/23 22:14 Temperature 97.6 F 07/14/23 22:14 Pulse Rate 83 07/14/23 22:14 Respiratory Rate 16 07/14/23 22:14 Blood Pressure 149/107 H 07/14/23 22:14 Pulse Oximetry 100 07/14/23 22:14 Oxygen Delivery Room Air 07/14/23 22:14 MDM - Extremity Injury (Lower) MDM Narrative Medical decision making narrative: Patient presents to the emergency department for right knee pain after an injury this afternoon. Patient is neurovascularly intact. Right knee x-ray shows mild osteoarthritis. Patient placed in knee immobilizer. He does have crutches at home. Instructed on further care of knee sprain. He is to follow-up with orthopedics. He was given warnings to return to the ER Differential Diagnosis Differential diagnosis: Likely acute internal derangement of knee and other (proximal tibial fracture) Imaging Data Radiologist's impression: ITS Impressions Knee X-Ray 07/14/23 22:40 IMPRESSION: 1. Mild right knee osteoarthritis. Critical Care Time Critical Care Time Critical Care Time: No Discharge Plan Discharge Clinical Impression: Acute internal derangement of knee Qual
[2023-07-15 01:15] VITALS: BP 132/93; PULSE 77; RESP 20; O2SAT 100
[2023-07-15] MEDS: KETOROLAC 30 MG/ML VIAL (*BKC) IM (01:21)
[2023-07-15 01:58] VITALS: BP 148/94; PULSE 82; RESP 20; O2SAT 95
== END 2023-07-15 02:00 | disposition home or self-care (01) ==
PROVIDERS: Emergency Provider Physician Assistant; PCP Family Medicine
DX: M23.91 Unspecified internal derangement of right knee (principal); S89.91XA Unspecified injury of right lower leg, initial encounter; I10 Essential (primary) hypertension; I31.9 Disease of pericardium, unspecified; Z87.891 Personal history of nicotine dependence; M17.11 Unilateral primary osteoarthritis, right knee; X50.9XXA Other and unspecified overexertion or strenuous movements or postures, initial encounter
CPT/HCPCS: 73562; 96372; 99283; J1885

== ENCOUNTER 2023-11-05 23:39 | Emergency (ER) | payer OTHER, SELFPAY ==
[2023-11-05 23:41] VITALS: BP 154/96; PULSE 82; RESP 20; TEMP 36.7; O2SAT 99
--- NOTE | 2023-11-06 00:11 | PC.NURSE ---
Patient comes to desk to inform this RN that his left ear feels warm and it is dylon popping. Patient states this occurred earlier this week as well.
[2023-11-06 00:38] LABS: Strep Group A RT-PCR NOT DETECTED (Negative)
[2023-11-06 00:51] LABS: Influenza A QL RT-PCR Negative (Negative); Influenza B QL RT-PCR Negative (Negative); RSV RNA, RT-PCR Negative (Negative); SARS-CoV-2 RNA PCR Negative (Negative)
--- NOTE | 2023-11-06 02:59 | ED.URI ---
HPI - URI/Sore Throat General Chief Complaint: Upper Respiratory Infection Stated Complaint: Sore throat, cough Time Seen by Provider: 11/06/23 02:45 Source: patient Mode of arrival: ambulatory Limitations: no limitations History of Present Illness HPI Narrative: 33 yo male with complaint of sore throat and cough. No fevers. Prescribed azithromycin. Also having left ear pain. No CP/SOB. Did trial using his daughter's albuterol nebulizer. Related Data Home Medications Medication Instructions Recorded Confirmed lisinopril 2.5 mg tablet 2.5 mg PO DAILY 09/28/21 09/28/21 metoprolol succinate 25 mg 25 mg PO DAILY 09/28/21 09/28/21 tablet,extended release 24 hr Allergies Allergy/AdvReac Type Severity Reaction Status Date / Time No Known Allergies Allergy Verified 11/05/23 23:44 [facility] Past Medical History Medical History Hypertension Pericarditis Surgical History Surgical History History of cardiac catheterization at age 23 No pertinent past surgical history Family History Family History Grandparent Heart disease Mother Cerebrovascular accident Daughter Asthma Social History Social History Smoking packs per day: 1 Smoking cigarettes per day: 20.0 Smoking status: Former smoker Tobacco type: cigarettes Alcohol intake: never Substance use: current Substance use type: marijuana Living arrangements: with family Sexual Orientation (if Verbalized by the Patient): Straight or Heterosexual Spiritual care concerns: No Exam Narrative: GENERAL: Well-appearing, well-nourished, and in no acute distress. HEAD: Normocephalic, atraumatic. EYES: Non injected, non icteric ENT: Nares clear, no rhinorrhea or epistaxis. Posterior oropharynx slightly hyperemeic. Mild tonsillar swelling without exudate. Minor erythema just adjacent to/outside right TM; left TM normal. Uvula midline NECK: Supple. No lymphadenopathy. CHEST: Speakign in complete sentences. No respiratory distress. Lungs clear to auscultation bilaterally without consolidation, wheezes, crackles. HEART: Regular rate and rhythm. . ABDOMEN: Soft, nondistended. EXTREMITIES: Normal range of motion. No edema. SKIN: Warm, dry, no rash. NEURO: No focal deficits. Alert and oriented x3. PSYCH: Normal mood and affect. Course Vital Signs Vital signs: Vital Signs Temperature 98.0 F 11/05/23 23:41 Pulse Rate 82 11/05/23 23:41 Respiratory Rate 20 11/05/23 23:41 Blood Pressure 154/96 H 11/05/23 23:41 Pulse Oximetry 99 11/05/23 23:41 Oxygen Delivery Room Air 11/05/23 23:41 Temperature 98.0 F 11/05/23 23:41 Pulse Rate 87 11/06/23 03:21 Respiratory Rate 16 11/06/23 03:21 Blood Pressure 148/90 H 11/06/23 03:21 Pulse Oximetry 97 11/06/23 03:21 Oxygen Delivery Room Air 11/06/23 03:14 MDM - URI/Sore Throat MDM Narrative Medical decision making narrative: 33 yo with sore throat and cough. VS with hypertension but otherwise not hypoxic, febrile, or tachycardic. Reassuring physical exam including only mild hyperemeia of posterior oropharynx with only mild tonsillar swelling and no exudate. No respiratory findings on auscultation. 4plex and Strep testing performed and negative. Patient given 1 time dose of dexamethasone as this has been shown to improve time to symptom resolution for pharyngitis. Also given lozenge and prescriptions. Discharged in stable condition with return/follow up instructions. Differential Diagnosis Differential diagnosis: Likely upper respiratory infection, otitis media, viral infection, bronchitis, influenza and pharyngitis Lab Data Labs: Lab Results 11/05/23 Range/Units 23:45 Influenza A (RT-PCR) Negative (Negative) Inf
[2023-11-06] MEDS: IBUPROFEN 600 MG TABLET PO (03:11)
[2023-11-06] MEDS: DEXAMETHASONE 2 MG TABLET 10 MG PO (03:11)
[2023-11-06 03:14] VITALS: O2SAT 99
[2023-11-06] MEDS: BENZOCAINE/MENTHOL (*BKC) 18 EA LOZENGE 1 LOZENGE PO (03:19)
[2023-11-06 03:21] VITALS: BP 148/90; PULSE 87; RESP 16; O2SAT 97
== END 2023-11-06 03:24 | disposition home or self-care (01) ==
PROVIDERS: Physician Assistant; Emergency Provider Student in an Organized Health Care Education/Training Program; PCP Family Medicine
DX: J06.9 Acute upper respiratory infection, unspecified (principal); I10 Essential (primary) hypertension; Z87.891 Personal history of nicotine dependence; Z20.822 Contact with and (suspected) exposure to COVID-19
CPT/HCPCS: 87637; 87651; 99283; A9270; J8540

== ENCOUNTER 2023-11-08 09:01 | Emergency (ER) | payer OTHER, SELFPAY ==
--- NOTE | ~2023-11-08 | XR_ITS ---
EXAMINATION: XR chest 2V 11/08/2023 11:49 INDICATION: Cough and sore throat PROCEDURE: 2 view chest COMPARISON: No prior studies for comparison. FINDINGS: The lungs are clear. The cardiomediastinal silhouette is within normal limits. There are no pleural effusions. There is no pneumothorax suspected. IMPRESSION: 1: NO ACUTE CARDIOPULMONARY DISEASE. Reviewed, dictated and finalized at location B. IST CAMP ATTENDANT
[2023-11-08 09:11] VITALS: BP 181/100; PULSE 77; RESP 20; TEMP 36.4; O2SAT 98
--- NOTE | 2023-11-08 10:43 | ECG_ITS ---
Measurements Intervals [place] Rate: 78 P: 52 WI: 216 QRS: 67 QRSD: 81 T: 37 QT: 349 QTc: 399 Interpretive Statements SINUS RHYTHM WITH FIRST DEGREE AV BLOCK COMPARED TO ECG 09/28/2021 22:13:20 NO SIGNIFICANT CHANGES Electronically Signed On 11-08-2023 20:54:23 LICENSING COORDINATOR by Alanna Maradiaga M.D.
--- NOTE | 2023-11-08 10:51 | ED.URI ---
HPI - URI/Sore Throat General Chief Complaint: Upper Respiratory Infection Stated Complaint: sore throat Time Seen by Provider: 11/08/23 10:11 Source: patient Mode of arrival: ambulatory Limitations: no limitations History of Present Illness HPI Narrative: This is a 33 year old male that presents to the ER for cold symptoms. Ongoing over the last couple of weeks. He has been treated with a Z pack and a steroid with little relief. Reports a productive cough, sore throat and congestion. Reports chest pain that is worse with coughing. Denies fevers or shortness of breath. Related Data Home Medications Medication Instructions Recorded Confirmed lisinopril 2.5 mg tablet 2.5 mg PO DAILY 09/28/21 09/28/21 metoprolol succinate 25 mg 25 mg PO DAILY 09/28/21 09/28/21 tablet,extended release 24 hr Allergies Allergy/AdvReac Type Severity Reaction Status Date / Time No Known Allergies Allergy Verified 11/05/23 23:44 Review of Systems Review of Systems: CONSTITUTIONAL: Denies fever ENT: Reports rhinorrhea, congestion, sore throat. Denies otalgia. CARDIOVASCULAR: Reports chest pain RESPIRATORY: Reports cough. Denies dyspnea. All systems reviewed & are unremarkable except as noted in HPI and below PMFSH Past Medical History Medical History Hypertension Pericarditis Surgical History Surgical History History of cardiac catheterization at age 23 No pertinent past surgical history Family History Family History Grandparent Heart disease Mother Cerebrovascular accident Daughter Asthma Social History Social History Smoking packs per day: 1 Smoking cigarettes per day: 20.0 Smoking status: Former smoker Tobacco type: cigarettes Alcohol intake: never Substance use: current Substance use type: marijuana Living arrangements: with family Sexual Orientation (if Verbalized by the Patient): Straight or Heterosexual Spiritual care concerns: No Exam Narrative: GENERAL: Well-appearing, well-nourished, and in no acute distress. HEAD: Normocephalic, atraumatic. EYES: EOMI. ENT: Nares clear, no rhinorrhea or epistaxis. Mucous membranes moist. Oropharynx with mild erythema, without tonsillar hypertrophy exudate or other lesions. Bilateral TMs pearly raymundo non-bulging NECK: Supple. No adenopathy or masses. CHEST: Clear to auscultation. No respiratory distress. No wheezes rales or rhonchi HEART: Regular rate and rhythm. No murmur heard. Normal peripheral pulses. EXTREMITIES: Normal range of motion. No edema. SKIN: Warm, dry, no rash. NEURO: No focal deficits. Alert and oriented x3. PSYCH: Normal mood and affect Course Course Emergency Course: Patient updated on workup and agrees with plan of care Vital Signs Vital signs: Vital Signs Temperature 97.6 F 11/08/23 09:11 Pulse Rate 77 11/08/23 09:11 Respiratory Rate 20 11/08/23 09:11 Blood Pressure 181/100 H 11/08/23 09:11 Pulse Oximetry 98 11/08/23 09:11 Oxygen Delivery Room Air 11/08/23 09:11 Temperature 97.6 F 11/08/23 09:11 Pulse Rate 74 11/08/23 13:30 Respiratory Rate 20 11/08/23 13:30 Blood Pressure 162/113 H 11/08/23 13:30 Pulse Oximetry 98 11/08/23 09:11 Oxygen Delivery Room Air 11/08/23 09:11 MDM - URI/Sore Throat MDM Narrative Medical decision making narrative: Patient presents to the ER for sore throat and congestion ongoing over the last 2 weeks. Reporting congestion, sore throat. He is afebrile and nontoxic appearing. Hypertensive upon arrival. Patient reported he had not been taking his blood pressure medication as prescribed. He was given this in the ED. Reporting chest pain, likely musculoskeletal in nature as it is worse with coughing. CBC wit
[2023-11-08 10:56] LABS: Strep Group A RT-PCR NOT DETECTED (Negative)
[2023-11-08 11:07] LABS: Influenza A QL RT-PCR Negative (Negative); Influenza B QL RT-PCR Negative (Negative); RSV RNA, RT-PCR Negative (Negative); SARS-CoV-2 RNA PCR Negative (Negative)
[2023-11-08] MEDS: lisinopriL 5 MG TABLET PO (11:40)
[2023-11-08] MEDS: KETOROLAC 30 MG/ML VIAL (*BKC) IM (11:40)
[2023-11-08 11:41] LABS: Basophils Absolute Auto 0.1 K/mm3 (0.0-0.1); Basophils Percent Auto 0.6 % (0.2-1.2); Eosinophils Absolute Auto 0.3 K/mm3 (0-0.3); Eosinophils Percent Auto 2.7 % (0-4.4); Hematocrit 42.5 % (42.0-52.0); Hemoglobin 14.1 g/dL (14.0-18.0); Immature Granulocyte Absolute 0.05 K/mm3 (0.00-0.031); Immature Granulocyte Percent A 0.5 % (0-0.5); Lymphocytes Absolute Auto 1.88 K/mm3 (0.9-3.2); Lymphocytes Percent Auto 17.4 % (18.3-44.2); Mean Corpuscular HGB Conc 33.2 g/dl (32-36); Mean Corpuscular Hemoglobin 29.2 pg (26-34); Mean Platelet Volume 9.4 fl (7.4-10.4); Monocytes Absolute Auto 1.2 K/mm3 (0.1-0.6); Monocytes Percent Auto 11.2 % (2.6-8.5); Neutrophils Absolute Auto 7.3 K/mm3 (1.3-6.7); Neutrophils Percent Auto 67.6 % (45.5-73.1); Platelet Count Result 306 k/mm3 (150-375); Red Blood Count 4.83 M/mm3 (4.6-6.20); Red Cell Distribution Width 13.2 % (11.5-14.5); White Blood Count 10.8 K/mm3 (4.5-10.0)
[2023-11-08 11:55] LABS: Alanine Aminotransferase 30 U/L (6-50); Alkaline Phosphatase 66 U/L (38-126); Anion Gap 10 mmol/L (8-16); Aspartate Amino Transferase 26 U/L (17-59); Bilirubin,Total 0.7 mg/dL (0.2-1.3); Blood Urea Nitrogen 9 mg/dL (9-20); Calcium 8.7 mg/dL (8.4-10.2); Carbon Dioxide 26 mmol/L (22-30); Chloride 105 mmol/L (98-107); Estimated CRCL calculation 146 ml/min; Estimated Glomerular Filt Rate > 60; Glucose 91 mg/dL (65-110); Potassium 3.8 mmol/L (3.4-5.0); Sodium 141 mmol/L (137-145)
[2023-11-08 12:06] LABS: Troponin I < 0.012 ng/mL (0.000-0.034)
[2023-11-08 13:30] VITALS: BP 162/113; PULSE 74; RESP 20
== END 2023-11-08 13:30 | disposition home or self-care (01) ==
PROVIDERS: Emergency Medicine; Emergency Provider Physician Assistant; PCP Family Medicine
DX: J01.90 Acute sinusitis, unspecified (principal); B96.89 Other specified bacterial agents as the cause of diseases classified elsewhere; I10 Essential (primary) hypertension; Z87.891 Personal history of nicotine dependence; Z20.822 Contact with and (suspected) exposure to COVID-19
CPT/HCPCS: 36415; 71046; 80053; 84484; 85025; 87637; 87651; 93005; 96372; 99284; A9270; J1885

== ENCOUNTER 2024-06-01 21:45 | Emergency (ER) | payer SELFPAY ==
[2024-06-01 21:53] VITALS: BP 147/93; PULSE 88; RESP 18; TEMP 36.8; O2SAT 100
[2024-06-01 23:31] LABS: Influenza A QL RT-PCR Negative (Negative); Influenza B QL RT-PCR Negative (Negative); RSV RNA, RT-PCR Negative (Negative); SARS-CoV-2 RNA PCR Positive (Negative)
--- NOTE | 2024-06-02 00:05 | ED.GENADULT ---
HPI - General Adult General Chief complaint: Upper Respiratory Infection Stated complaint: upper resp, congestion, cough Time Seen by Provider: 06/01/24 23:59 History of Present Illness HPI narrative: This is a 34-year-old male presenting to ED with URI symptoms. Those include cough congestion. No sore throat. No chest pain difficulty breathing nausea vomiting or diarrhea. No fevers. Related Data Home Medications Medication Instructions Recorded Confirmed lisinopril 2.5 mg tablet 2.5 mg PO DAILY 09/28/21 09/28/21 metoprolol succinate 25 mg 25 mg PO DAILY 09/28/21 09/28/21 tablet,extended release 24 hr Allergies Allergy/AdvReac Type Severity Reaction Status Date / Time No Known Allergies Allergy Verified 11/05/23 23:44 [facility] Past Medical History Medical History Hypertension Pericarditis Surgical History Surgical History History of cardiac catheterization at age 23 No pertinent past surgical history Family History Family History Grandparent Heart disease Mother Cerebrovascular accident Daughter Asthma Social History Social History Smoking packs per day: 1 Smoking cigarettes per day: 20.0 Smoking status: Former smoker Tobacco type: cigarettes Alcohol intake: never Substance use: current Substance use type: marijuana Living arrangements: with family Sexual Orientation (if Verbalized by the Patient): Straight or Heterosexual Spiritual care concerns: No Exam Narrative: APPEARANCE: No apparent distress. Head: atraumatic. EYES: EOMI, NOSE: Atraumatic NECK: Trachea midline RESPIRATORY: No increased rate of breathing, CTAB CARDIOVASCULAR: RRR, ABDOMINAL: Non-distended MUSCULOSKELETAl: No obvious deformities NEURO: Alert. Moving 4/4 extremities SKIN:: Warm, dry. Normal color PSYCHIATRIC: Normal affect Course Vital Signs Vital signs: Vital Signs Temperature 98.3 F 06/01/24 21:53 Pulse Rate 88 06/01/24 21:53 Respiratory Rate 18 06/01/24 21:53 Blood Pressure 147/93 H 06/01/24 21:53 Pulse Oximetry 100 06/01/24 21:53 Oxygen Delivery Room Air 06/01/24 21:53 Temperature 98.3 F 06/01/24 21:53 Pulse Rate 88 06/01/24 21:53 Respiratory Rate 18 06/01/24 21:53 Blood Pressure 147/93 H 06/01/24 21:53 Pulse Oximetry 100 06/01/24 21:53 Oxygen Delivery Room Air 06/01/24 22:21 Medical Decision Making MDM Narrative Medical decision making narrative: -Course: 34-year-old male presents with URI symptoms. COVID positive. Vital signs stable. Well-appearing. He is in no respiratory distress. Patient discharged with return precautions. -DDX includes but is not limited to: Viral syndrome, pneumonia Vital Signs Vital Signs: Vital Signs Temperature 98.3 F 06/01/24 21:53 Pulse Rate 88 06/01/24 21:53 Respiratory Rate 18 06/01/24 21:53 Blood Pressure 147/93 H 06/01/24 21:53 Pulse Oximetry 100 06/01/24 21:53 Oxygen Delivery Room Air 06/01/24 21:53 Temperature 98.3 F 06/01/24 21:53 Pulse Rate 88 06/01/24 21:53 Respiratory Rate 18 06/01/24 21:53 Blood Pressure 147/93 H 06/01/24 21:53 Pulse Oximetry 100 06/01/24 21:53 Oxygen Delivery Room Air 06/01/24 22:21 Lab Data Labs: Lab Results 06/01/24 Range/Units 22:46 Influenza A (RT-PCR) Negative (Negative) Influenza B (RT-PCR) Negative (Negative) RSV (RT-PCR) Negative (Negative) SARS-CoV-2 RNA (RT-PCR) Positive A (Negative) Discharge Plan Discharge Clinical Impression: COVID Patient Disposition: Home, Self-Care Condition: Stable Instructions: Antibiotic Form, COVID-19 (Coronavirus Disease 2019) (ED) Additional Instructions: You have COVID. Follow-up with primary care phys
[2024-06-02 00:34] VITALS: BP 115/79; PULSE 76; RESP 18; O2SAT 94
== END 2024-06-02 00:35 | disposition home or self-care (01) ==
LOC: ANHED 06-02 00:12
PROVIDERS: Physician Assistant; Emergency Provider Emergency Medicine; PCP Family Medicine
DX: U07.1 COVID-19 (principal); I10 Essential (primary) hypertension; Z87.891 Personal history of nicotine dependence; Z79.899 Other long term (current) drug therapy
CPT/HCPCS: 87637; 99283